=== PATIENT | male | born 1980 | race Two or more races ===

== ENCOUNTER 2017-08-26 20:26 | Emergency (ER) | payer SELFPAY ==
[~2017-08-26] VITALS: Ht 182.9 cm; Wt 83.0 kg
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
--- NOTE | 2017-08-26 20:45 | NUR ---
REINFORCEMENT MAKER AT BEDSIDE FOR EVAL.
[2017-08-26] MEDS ORDERED: HYDROCODONE/APAP 5/325MG 1 EACH TABLET ONE ×2 (21:01→22:16)
--- NOTE | 2017-08-26 21:17 | NUR ---
PT TO CT VIA STRETCHER, VSS.
[2017-08-26] MEDS ORDERED: HYDROCODONE/APAP 5/325MG 1 EACH TABLET PO ONE ×2 (21:30→22:00)
--- NOTE | 2017-08-26 21:46 | NUR ---
PT BACK FROM CT.
--- NOTE | 2017-08-26 22:23 | NUR ---
ADVERTISING TEACHER AT BEDSIDE SPEAKING WITH PATIENT.
--- NOTE | 2017-08-26 22:28 | NUR ---
Patient discharged with family to home in stable condition. Written and verbal after care instructions given. Patient verbalizes understanding of instruction. Patient ambulatory with a steady gait.
[2017-08-26 22:29] VITALS: BP 114/73
== END 2017-08-26 22:29 | disposition home or self-care (01) ==
LOC: ER 20:28
DX: S16.1XXA Strain of muscle, fascia and tendon at neck level, initial encounter (principal); S80.212A Abrasion, left knee, initial encounter; S60.811A Abrasion of right wrist, initial encounter; M54.5 Low back pain; R51 Headache; V43.52XA Car driver injured in collision with other type car in traffic accident, initial encounter; Y93.89 Activity, other specified; Y92.413 State road as the place of occurrence of the external cause; Y99.8 Other external cause status
CPT/HCPCS: 70450-TC; 71045-TC; 72074-TC; 72100-TC; 72125-TC; 72170-TC; 73564-TC; A4606; Z7610